=== PATIENT | male | born 1985 | race Caucasian/White ===

== ENCOUNTER → 2020-03-05 10:29 | Outpatient (BNVA) | payer BC, SELFPAY | PROVIDERS: PCP Family Medicine; Visit Provider Emergency Medicine | DX: Z20.828 Contact with and (suspected) exposure to other viral communicable diseases (principal); R09.81 Nasal congestion | CPT/HCPCS: 87635 ==

== ENCOUNTER 2020-03-15 12:58 | Outpatient (CLI) | payer BC, SELFPAY ==
--- NOTE | 2020-03-15 13:00 | CT_ITS ---
WS: [id number] CT HEAD WITH AND WITHOUT CONTRAST HISTORY: R03.0 - Elevated blood-pressure reading, without diagnosis of hypertension TECHNIQUE: Noncontrast 2.5 mm axial images obtained from the vertex to the skull base. Additional grisel ging performed at 2.5 mm axial images status post IV contrast. Bone and soft tissue windows are revie wed. All CT scans at [facility] use at least one of these dose optimization techniques: a utomated exposure control; mA and/or kV adjustment per patient size (includes targeted exams where do se is matched to clinical indication); or iterative reconstruction. CONTRAST: Omnipaque 300; 95 mL IV. DLP: 1984.08 mGycm COMPARISON: None available. No acute intracranial hemorrhage, edema or midline shift. No enhancing mass or vascular malformations identified. Dural venous sinuses are normally enhancing. Visualized [place] is unremarkable. Paranasal sinuses as visualized: Clear. Mastoid air cells: Clear. Calvarium and scalp: Intact. CT/CT head wo/w con [id number] IMPRESSION: Negative CT head with and without contrast.
[2020-03-15] MEDS: iohexol 300 mg/mL 100 mL Btl IV (13:50)
== END 2020-03-15 12:59 | disposition home or self-care (01) ==
LOC: RADWPI 13:03
PROVIDERS: PCP Family Medicine; Visit Provider Nurse Practitioner Family
DX: R03.0 Elevated blood-pressure reading, without diagnosis of hypertension (principal)
CPT/HCPCS: 70470; Q9967

== ENCOUNTER → 2023-04-24 09:33 | Outpatient (BNVA) | payer OTHER, SELFPAY | PROVIDERS: Visit Provider Emergency Medicine | DX: J98.8 Other specified respiratory disorders (principal); B97.89 Other viral agents as the cause of diseases classified elsewhere; J02.9 Acute pharyngitis, unspecified; J02.0 Streptococcal pharyngitis | CPT/HCPCS: 87400; 87426; 87880 ==